=== PATIENT | male | born 1950 | race Caucasian/White ===

== ENCOUNTER 2019-09-12 19:10 | Inpatient (IN) ==
[2019-09-12] MEDS ORDERED: *HR* Metoprolol 5 MG/5 ML VIAL IVP ONE (19:34)
[2019-09-12] MEDS: DilTIAZem 50 MG/50 ML IV.SOLN IVC SCH (20:40)
[2019-09-12 21:23] LABS: Basophils # 0.1 K/mcL (0.0-0.2); Basophils % 0.7 %; Eosinophils # 0.1 K/mcL (0.0-0.6); Eosinophils % 1.1 %; Hematocrit 48.9 % (37.5-50.1); Hemoglobin 16.4 g/dL (12.9-16.9); Immature Granulocytes % 0.3 % (0-4); Lymphocytes # 2.8 K/mcL (0.6-4.6); Lymphocytes % 23.6 %; Mean Corpuscular HGB Conc 33.5 g/dL (31.6-35.5); Mean Corpuscular Hemoglobin 29.4 pg (28.0-33.3); Mean Corpuscular Volume 87.8 fL (83.0-100.0); Mean Platelet Volume 10.3 fL (9.4-12.4); Monocytes # 1.3 K/mcL (0.0-1.3); Monocytes % 11.3 %; Neutrophils # 7.4 K/mcL (1.6-8.9); Platelet Count 317 K/mcL (140-400); Red Blood Count 5.57 M/mcL (4.19-5.50); Red Cell Distribution Width 13.2 % (11.5-14.5); White Blood Count 11.7 K/mcL (4.3-11.1)
[2019-09-12 21:39] LABS: Alanine Aminotransferase 7 Units/L (7-52); Albumin 4.1 g/dL (3.5-5.7); Albumin/Globulin Ratio 1.7 (1.1-2.2); Alkaline Phosphatase 64 Units/L (34-104); Aspartate Amino Transferase 10 Units/L (13-39); BUN/Creatinine Ratio 13 (6-26); Bilirubin,Total 0.8 mg/dL (0.3-1.0); Blood Urea Nitrogen 12 mg/dL (8-23); Carbon Dioxide 22 mEq/L (23-29); Chloride 108 mEq/L (98-107); Globulin 2.4 g/dL (2.4-3.5); Glucose 112 mg/dL (70-105); Osmolality,Calculated 291 (280-300); Potassium 3.4 mEq/L (3.5-5.1); Sodium 140 mEq/L (136-145); Total Protein 6.5 g/dL (6.4-8.9); Troponin I < 0.03 ng/mL (< 0.04); eGFR For African Americans > 60 (> 60); eGFR For Non-African Americans > 60 (> 60)
[2019-09-12 21:51] LABS: Thyroid Stimulating Hormone 1.633 mcIU/mL (0.340-5.600)
[2019-09-12 21:52] LABS: Triiodothyronine (T3) Free 3.74 pg/mL (2.50-3.90)
[2019-09-12] MEDS ORDERED: 0.9 % Sodium Chloride 1,000 ML IV ONE (21:57)
[2019-09-13] MEDS ORDERED: *HR* Promethazine 25 MG/ML VIAL IVP PRN (02:29)
[2019-09-13] MEDS ORDERED: Naloxone 0.4 MG/ML INJ IVP PRN (02:29)
[2019-09-13] MEDS ORDERED: Acetaminophen 325 MG TABLET PO PRN (02:29)
[2019-09-13] MEDS ORDERED: Perflutren Lipid Microsphere 1.3 ML in 0.9 % Sodium Chloride 8.7 ML IVP PRN (02:31)
[2019-09-13] MEDS: DilTIAZem 50 MG/50 ML IV.SOLN IVC SCH ×2 (03:19→07:42)
[2019-09-13 06:38] LABS: Basophils # 0.1 K/mcL (0.0-0.2); Basophils % 0.9 %; Eosinophils # 0.2 K/mcL (0.0-0.6); Eosinophils % 2.4 %; Hematocrit 48.1 % (37.5-50.1); Immature Granulocytes % 0.3 % (0-4); Lymphocytes # 2.3 K/mcL (0.6-4.6); Mean Corpuscular HGB Conc 33.3 g/dL (31.6-35.5); Mean Corpuscular Hemoglobin 29.4 pg (28.0-33.3); Mean Corpuscular Volume 88.3 fL (83.0-100.0); Mean Platelet Volume 10.4 fL (9.4-12.4); Monocytes % 10.7 %; Platelet Count 289 K/mcL (140-400); Red Blood Count 5.45 M/mcL (4.19-5.50); Red Cell Distribution Width 13.4 % (11.5-14.5); Segmented Neutrophils % 61.7 %; White Blood Count 9.7 K/mcL (4.3-11.1)
[2019-09-13 06:43] LABS: INR 1.5; Prothrombin Time 16.9 Seconds (9.4-12.1)
[2019-09-13 07:05] LABS: BUN/Creatinine Ratio 11 (6-26); Blood Urea Nitrogen 10 mg/dL (8-23); Calcium 8.5 mg/dL (8.6-10.3); Carbon Dioxide 23 mEq/L (23-29); Chloride 109 mEq/L (98-107); Chol/HDL Ratio 3.8 (0-4.9); Cholesterol 121 mg/dL (< 200); Glucose 107 mg/dL (70-105); HDL Cholesterol 32 mg/dL (40-59); LDL Cholesterol,Calculated 69 mg/dL (< 100); Osmolality,Calculated 290 (280-300); Phosphorous 3.3 mg/dL (2.7-4.5); Potassium 3.6 mEq/L (3.5-5.1); Sodium 140 mEq/L (136-145); Triglycerides 100 mg/dL (< 150); Troponin I < 0.03 ng/mL (< 0.04); eGFR For African Americans > 60 (> 60); eGFR For Non-African Americans > 60 (> 60)
[2019-09-13] MEDS: *HR* Rivaroxaban 10 MG TABLET PO SCH (07:42)
[2019-09-13] MEDS ORDERED: DilTIAZem CD (24hr) 240 MG CAP.ER.24H PO SCH (09:00)
[2019-09-13] MEDS ORDERED: Metoprolol XL (24 HR) Succ 25 MG TAB.ER.24H PO SCH (10:30)
[2019-09-13 11:00] LABS: Estimated Average Glucose 108 mg/dl
[2019-09-13] MEDS ORDERED: 0.9 % Sodium Chloride 1,000 ML ONE (14:22)
[2019-09-13] MEDS ORDERED: *HR* Midazolam HCl 2 MG/2 ML VIAL ONE ×2 (14:24→14:30)
[2019-09-13] MEDS ORDERED: *HR* FentaNYL (PF) 100 MCG/2 ML VIAL ONE (14:24)
[2019-09-14] MEDS ORDERED: Regadenoson 0.4 MG/5 ML SYRINGE IVP ONE (06:33)
[2019-09-14 07:25] VITALS: BP 105/67
[2019-09-14 07:52] LABS: Basophils # 0.1 K/mcL (0.0-0.2); Basophils % 0.9 %; Eosinophils # 0.3 K/mcL (0.0-0.6); Eosinophils % 3.5 %; Hematocrit 44.4 % (37.5-50.1); Hemoglobin 14.4 g/dL (12.9-16.9); Immature Granulocytes % 0.3 % (0-4); Lymphocytes % 23.5 %; Mean Corpuscular HGB Conc 32.4 g/dL (31.6-35.5); Mean Corpuscular Hemoglobin 29.1 pg (28.0-33.3); Mean Corpuscular Volume 89.7 fL (83.0-100.0); Mean Platelet Volume 10.3 fL (9.4-12.4); Monocytes # 0.9 K/mcL (0.0-1.3); Monocytes % 10.4 %; Neutrophils # 5.3 K/mcL (1.6-8.9); Platelet Count 275 K/mcL (140-400); Red Blood Count 4.95 M/mcL (4.19-5.50); Red Cell Distribution Width 13.7 % (11.5-14.5); Segmented Neutrophils % 61.4 %; White Blood Count 8.6 K/mcL (4.3-11.1)
[2019-09-14 08:05] LABS: BUN/Creatinine Ratio 15 (6-26); Blood Urea Nitrogen 15 mg/dL (8-23); Calcium 8.3 mg/dL (8.6-10.3); Carbon Dioxide 24 mEq/L (23-29); Chloride 108 mEq/L (98-107); Glucose 100 mg/dL (70-105); Osmolality,Calculated 285 (280-300); Potassium 4.3 mEq/L (3.5-5.1); Sodium 137 mEq/L (136-145); eGFR For African Americans > 60 (> 60); eGFR For Non-African Americans > 60 (> 60)
[2019-09-14] MEDS: *HR* Rivaroxaban 10 MG TABLET PO SCH (10:17)
[2019-09-14] MEDS ORDERED: DilTIAZem CD (24hr) 120 MG CAP.ER.24H PO SCH (11:15)
[2019-09-14] MEDS ORDERED: DilTIAZem CD (24hr) 240 MG CAP.ER.24H PO SCH (12:00)
== END 2019-09-14 12:45 | disposition home or self-care (01) | DRG 310 ==
LOC: EMEROOARM 19:10 → 2ANU 19:10 → SUATTDRO 09-13 01:20 → 2ANU 09-13 02:27
PROVIDERS: ADMIT Student in an Organized Health Care Education/Training Program; ATTEND Internal Medicine

== ENCOUNTER 2019-09-23 09:00 | Inpatient (IN) ==
[2019-09-23] MEDS: *HR* Rivaroxaban 10 MG TABLET PO SCH (16:58)
[2019-09-24] MEDS: *HR* Rivaroxaban 10 MG TABLET PO SCH (17:03)
[2019-09-25 12:04] VITALS: BP 136/78
== END 2019-09-25 13:36 | disposition home or self-care (01) | DRG 310 ==
LOC: 3BNU
PROVIDERS: ADMIT Internal Medicine Clinical Cardiac Electrophysiology; ATTEND Internal Medicine Clinical Cardiac Electrophysiology

== ENCOUNTER 2021-07-23 07:11 | Observation (INO) ==
[2021-07-23 08:00] LABS: Basophils # 0.1 K/mcL (0.0-0.2); Eosinophils # 0.3 K/mcL (0.0-0.6); Eosinophils % 3.3 %; Hematocrit 47.9 % (37.5-50.1); Hemoglobin 15.9 g/dL (12.9-16.9); Immature Granulocytes % 0.3 % (0-4); Lymphocytes # 2.1 K/mcL (0.6-4.6); Lymphocytes % 23.3 %; Mean Corpuscular HGB Conc 33.2 g/dL (31.6-35.5); Mean Corpuscular Hemoglobin 29.4 pg (28.0-33.3); Mean Corpuscular Volume 88.5 fL (83.0-100.0); Mean Platelet Volume 11.2 fL (9.4-12.4); Monocytes # 0.8 K/mcL (0.0-1.3); Monocytes % 8.8 %; Neutrophils # 5.7 K/mcL (1.6-8.9); Platelet Count 292 K/mcL (140-400); Red Blood Count 5.41 M/mcL (4.19-5.50); Red Cell Distribution Width 13.2 % (11.5-14.5); Segmented Neutrophils % 63.3 %
[2021-07-23 08:05] LABS: Alanine Aminotransferase 20 Units/L (7-52); Albumin 4.1 g/dL (3.5-5.7); Albumin/Globulin Ratio 1.5 (1.1-2.2); Alkaline Phosphatase 68 Units/L (34-104); Aspartate Amino Transferase 17 Units/L (13-39); BUN/Creatinine Ratio 12 (6-26); Bilirubin,Total 0.9 mg/dL (0.3-1.0); Blood Urea Nitrogen 11 mg/dL (8-23); Calcium 9.1 mg/dL (8.6-10.3); Carbon Dioxide 23 mEq/L (23-29); Chloride 110 mEq/L (98-107); Globulin 2.7 g/dL (2.4-3.5); Glucose 134 mg/dL (70-105); Magnesium 2.1 mg/dL (1.6-2.6); Osmolality,Calculated 299 (280-300); Potassium 3.9 mEq/L (3.5-5.1); Sodium 144 mEq/L (136-145); Total Protein 6.8 g/dL (6.4-8.9); Troponin I < 0.03 ng/mL (< 0.04); eGFR For African Americans > 60 (> 60); eGFR For Non-African Americans > 60 (> 60)
[2021-07-23] MEDS: DilTIAZem 50 MG/50 ML IV.SOLN IVC SCH (08:10)
[2021-07-23] MEDS ORDERED: Acetaminophen 325 MG TABLET PO PRN (08:45)
[2021-07-23] MEDS ORDERED: Melatonin 3 MG TABLET PO PRN (08:45)
[2021-07-23] MEDS ORDERED: Ondansetron 4 MG/2 ML VIAL IVP PRN (08:45)
[2021-07-23] MEDS ORDERED: Naloxone 0.4 MG/ML INJ IVP PRN (08:45)
[2021-07-23] MEDS ORDERED: Perflutren Lipid Microsphere 1.3 ML in 0.9 % Sodium Chloride 8.7 ML IVP PRN (08:51)
[2021-07-23] MEDS ORDERED: *HR* Rivaroxaban 10 MG TABLET PO SCH (17:00)
[2021-07-24] MEDS: DilTIAZem 50 MG/50 ML IV.SOLN IVC SCH (03:46)
[2021-07-24 06:40] LABS: Basophils # 0.1 K/mcL (0.0-0.2); Basophils % 1.1 %; Eosinophils # 0.3 K/mcL (0.0-0.6); Eosinophils % 3.5 %; Hematocrit 44.2 % (37.5-50.1); Hemoglobin 14.6 g/dL (12.9-16.9); Immature Granulocytes % 0.4 % (0-4); Lymphocytes # 2.2 K/mcL (0.6-4.6); Lymphocytes % 23.8 %; Mean Corpuscular Hemoglobin 29.7 pg (28.0-33.3); Mean Platelet Volume 10.9 fL (9.4-12.4); Monocytes # 0.8 K/mcL (0.0-1.3); Monocytes % 8.3 %; Neutrophils # 5.9 K/mcL (1.6-8.9); Platelet Count 248 K/mcL (140-400); Red Blood Count 4.91 M/mcL (4.19-5.50); Red Cell Distribution Width 13.3 % (11.5-14.5); Segmented Neutrophils % 62.9 %; White Blood Count 9.3 K/mcL (4.3-11.1)
[2021-07-24 06:51] VITALS: BP 115/61; PULSE 47; TEMP 97.6; O2SAT 94
[2021-07-24 07:00] LABS: BUN/Creatinine Ratio 13 (6-26); Blood Urea Nitrogen 12 mg/dL (8-23); Calcium 8.8 mg/dL (8.6-10.3); Carbon Dioxide 24 mEq/L (23-29); Chloride 108 mEq/L (98-107); Cholesterol 115 mg/dL (< 200); Glucose 92 mg/dL (70-105); HDL Cholesterol 29 mg/dL (40-59); LDL Cholesterol,Calculated 61 mg/dL (< 100); Magnesium 2.1 mg/dL (1.6-2.6); Osmolality,Calculated 291 (280-300); Potassium 4.1 mEq/L (3.5-5.1); Sodium 141 mEq/L (136-145); Triglycerides 127 mg/dL (< 150); eGFR For African Americans > 60 (> 60); eGFR For Non-African Americans > 60 (> 60)
== END 2021-07-24 10:54 | disposition home or self-care (01) ==
LOC: EMEROOARM 07:11 → 3BNU 07:11
PROVIDERS: ADMIT Hospitalist; ATTEND Hospitalist

== ENCOUNTER 2021-09-29 23:19 | Inpatient (IN) ==
[2021-09-29] MEDS ORDERED: niCARdipine 0 MG/0 ML MLS IVC ONE (23:47)
[2021-09-30 00:07] LABS: Basophils # 0.1 K/mcL (0.0-0.2); Eosinophils # 0.4 K/mcL (0.0-0.6); Eosinophils % 3.6 %; Hematocrit 47.4 % (37.5-50.1); Hemoglobin 15.9 g/dL (12.9-16.9); Immature Granulocytes % 0.4 % (0-4); Lymphocytes # 2.8 K/mcL (0.6-4.6); Lymphocytes % 26.3 %; Mean Corpuscular HGB Conc 33.5 g/dL (31.6-35.5); Mean Corpuscular Hemoglobin 29.8 pg (28.0-33.3); Mean Corpuscular Volume 88.8 fL (83.0-100.0); Mean Platelet Volume 11.1 fL (9.4-12.4); Monocytes % 9.7 %; Neutrophils # 6.3 K/mcL (1.6-8.9); Platelet Count 303 K/mcL (140-400); Red Blood Count 5.34 M/mcL (4.19-5.50); Red Cell Distribution Width 13.1 % (11.5-14.5); White Blood Count 10.7 K/mcL (4.3-11.1)
[2021-09-30 00:16] LABS: INR 1.6; Prothrombin Time 18.2 Seconds (9.4-12.1)
[2021-09-30 00:18] LABS: Alanine Aminotransferase 16 Units/L (7-52); Albumin 4.2 g/dL (3.5-5.7); Albumin/Globulin Ratio 1.4 (1.1-2.2); Alkaline Phosphatase 67 Units/L (34-104); Aspartate Amino Transferase 19 Units/L (13-39); BUN/Creatinine Ratio 9 (6-26); Bilirubin,Direct 0.1 mg/dL (0.0-0.2); Bilirubin,Indirect 0.5 mg/dL (0.0-1.0); Bilirubin,Total 0.6 mg/dL (0.3-1.0); Blood Urea Nitrogen 9 mg/dL (8-23); Calcium 8.7 mg/dL (8.6-10.3); Carbon Dioxide 25 mEq/L (23-29); Chloride 108 mEq/L (98-107); Globulin 2.9 g/dL (2.4-3.5); Glucose 104 mg/dL (70-105); Magnesium 2.1 mg/dL (1.6-2.6); Osmolality,Calculated 289 (280-300); Potassium 3.8 mEq/L (3.5-5.1); Sodium 140 mEq/L (136-145); Total Protein 7.1 g/dL (6.4-8.9); Troponin I < 0.03 ng/mL (< 0.04)
[2021-09-30 00:19] LABS: Activated Partial Thrombo Time 39.4 Seconds (26.0-36.0)
[2021-09-30 00:32] LABS: Thyroid Stimulating Hormone 2.398 mcIU/mL (0.340-5.600)
[2021-09-30 00:38] LABS: Influenza A PCR Negative (Negative); Influenza B PCR Negative (Negative); Resp. Syncytial Virus PCR Negative (Negative)
[2021-09-30 00:39] LABS: SARS-CoV-2 by PCR (In House) Negative (Negative)
[2021-09-30] MEDS ORDERED: Naloxone 0.4 MG/ML INJ IVP PRN (01:00)
[2021-09-30] MEDS ORDERED: Melatonin 3 MG TABLET PO PRN (01:00)
[2021-09-30] MEDS ORDERED: *HR* Metoprolol 5 MG/5 ML VIAL IVP ONE (01:58)
[2021-09-30] MEDS ORDERED: Amiodarone Premix 150 MG/100 ML BAG IVPB ONE (02:19)
[2021-09-30] MEDS ORDERED: Amiodarone Premix 360 MG/200 ML BAG IVC ONE (03:00)
[2021-09-30 04:04] LABS: Hematocrit 44.5 % (37.5-50.1); Hemoglobin 14.6 g/dL (12.9-16.9); Mean Corpuscular HGB Conc 32.8 g/dL (31.6-35.5); Mean Corpuscular Hemoglobin 29.5 pg (28.0-33.3); Mean Corpuscular Volume 89.9 fL (83.0-100.0); Mean Platelet Volume 11.3 fL (9.4-12.4); Platelet Count 283 K/mcL (140-400); Red Blood Count 4.95 M/mcL (4.19-5.50); Red Cell Distribution Width 13.1 % (11.5-14.5); White Blood Count 11.6 K/mcL (4.3-11.1)
[2021-09-30 04:20] LABS: Calcium 8.3 mg/dL (8.6-10.3); Magnesium 2.1 mg/dL (1.6-2.6); Phosphorous 3.4 mg/dL (2.7-4.5); Potassium 3.7 mEq/L (3.5-5.1)
[2021-09-30] MEDS ORDERED: *HR* Metoprolol 5 MG/5 ML VIAL IVP PRN (04:49)
[2021-09-30] MEDS ORDERED: Magnesium Sulfate 1 GM/102 ML PIGGYBACK IVPB ONE (05:42)
[2021-09-30] MEDS ORDERED: Amiodarone Premix 360 MG/200 ML BAG IVC SCH (09:00)
[2021-09-30] MEDS ORDERED: *HR* Rivaroxaban 10 MG TABLET PO SCH (09:00)
[2021-09-30] MEDS ORDERED: *HR* Heparin 5,000 UNIT/ML VIAL IVP PRN ×2 (15:39)
[2021-09-30] MEDS ORDERED: Heparin 25,000UNIT/250ML 1/2NS 25,000 UNIT/250 ML IV.SOLN IVC SCH (15:45)
[2021-09-30 16:05] LABS: Hematocrit 43.1 % (37.5-50.1); Hemoglobin 14.4 g/dL (12.9-16.9); Mean Corpuscular HGB Conc 33.4 g/dL (31.6-35.5); Mean Corpuscular Volume 89.8 fL (83.0-100.0); Mean Platelet Volume 10.8 fL (9.4-12.4); Platelet Count 272 K/mcL (140-400); Red Cell Distribution Width 13.2 % (11.5-14.5); White Blood Count 8.8 K/mcL (4.3-11.1)
[2021-09-30 16:12] LABS: Heparin anti-factor XA UFH 0.65 IU/mL (0.30-0.70)
[2021-09-30 16:13] LABS: INR 1.4; Prothrombin Time 15.6 Seconds (9.4-12.1)
[2021-09-30] MEDS: Heparin 25,000UNIT/250ML 1/2NS 25,000 UNIT/250 ML IV.SOLN IVC SCH (18:13)
[2021-10-01 03:42] LABS: BUN/Creatinine Ratio 12 (6-26); Blood Urea Nitrogen 11 mg/dL (8-23); Calcium 8.3 mg/dL (8.6-10.3); Carbon Dioxide 25 mEq/L (23-29); Chloride 108 mEq/L (98-107); Glucose 89 mg/dL (70-105); Magnesium 2.2 mg/dL (1.6-2.6); Osmolality,Calculated 287 (280-300); Sodium 139 mEq/L (136-145)
[2021-10-01 03:57] LABS: Basophils # 0.1 K/mcL (0.0-0.2); Basophils % 1.1 %; Eosinophils # 0.4 K/mcL (0.0-0.6); Eosinophils % 4.3 %; Hematocrit 43.9 % (37.5-50.1); Hemoglobin 14.4 g/dL (12.9-16.9); Immature Granulocytes % 0.4 % (0-4); Lymphocytes # 2.4 K/mcL (0.6-4.6); Lymphocytes % 28.3 %; Mean Corpuscular HGB Conc 32.8 g/dL (31.6-35.5); Mean Corpuscular Hemoglobin 29.7 pg (28.0-33.3); Mean Corpuscular Volume 90.5 fL (83.0-100.0); Mean Platelet Volume 12.3 fL (9.4-12.4); Monocytes # 0.7 K/mcL (0.0-1.3); Monocytes % 8.7 %; Neutrophils # 4.8 K/mcL (1.6-8.9); Platelet Count 246 K/mcL (140-400); Red Blood Count 4.85 M/mcL (4.19-5.50); Red Cell Distribution Width 13.2 % (11.5-14.5); Segmented Neutrophils % 57.2 %; White Blood Count 8.4 K/mcL (4.3-11.1)
[2021-10-01] MEDS: Heparin 25,000UNIT/250ML 1/2NS 25,000 UNIT/250 ML IV.SOLN IVC SCH (10:35)
[2021-10-01] MEDS ORDERED: Nitroglycerin 1,000 MCG/5 ML VIAL IV ONE (13:51)
[2021-10-01] MEDS ORDERED: Heparin 1,000 UNITS/500 mL 500 ML ONE (13:51)
[2021-10-01] MEDS ORDERED: *HR* Heparin 10,000 UNIT/10 ML VIAL ONE ×2 (13:51→14:32)
[2021-10-01] MEDS ORDERED: Iopamidol - 370 200 ML INFUS..BTL ONE (13:51)
[2021-10-01] MEDS ORDERED: 0.9 % Sodium Chloride 1,000 ML ONE ×2 (13:51→13:55)
[2021-10-01] MEDS ORDERED: *HR* Midazolam HCl 2 MG/2 ML VIAL ONE (14:10)
[2021-10-01] MEDS ORDERED: *HR* FentaNYL (PF) 100 MCG/2 ML VIAL ONE (14:10)
[2021-10-01] MEDS ORDERED: *HR* Rivaroxaban 10 MG TABLET PO SCH (17:00)
[2021-10-02 01:27] LABS: Hematocrit 44.6 % (37.5-50.1)
[2021-10-02 01:46] LABS: Calcium 8.5 mg/dL (8.6-10.3); Magnesium 2.1 mg/dL (1.6-2.6); Potassium 3.9 mEq/L (3.5-5.1)
[2021-10-02] MEDS ORDERED: Aspirin Enteric Coated 81 MG Tablet PO SCH (09:00)
[2021-10-02 09:29] VITALS: BP 137/70; PULSE 74; TEMP 97.2; O2SAT 99
[2021-10-03] MEDS ORDERED: Metoprolol XL (24 HR) Succ 25 MG TAB.ER.24H PO SCH (18:00)
== END 2021-10-02 13:00 | disposition home or self-care (01) | DRG 247 ==
LOC: 2NENU 23:19 → EMEROOARM 23:19 → SUATTDRO 09-30 01:00 → 2NENU 09-30 02:00 → SUATTDRO 09-30 14:10
PROVIDERS: ADMIT Internal Medicine; ATTEND Internal Medicine

== ENCOUNTER 2021-10-20 23:07 | Observation (INO) ==
[2021-10-20] MEDS ORDERED: *HR* Metoprolol 5 MG/5 ML VIAL IVP ONE (23:17)
[2021-10-20] MEDS ORDERED: Aspirin 81 MG TAB.CHEW PO ONE (23:17)
[2021-10-20 23:40] LABS: Basophils # 0.1 K/mcL (0.0-0.2); Eosinophils # 0.3 K/mcL (0.0-0.6); Eosinophils % 2.7 %; Hematocrit 47.1 % (37.5-50.1); Hemoglobin 15.8 g/dL (12.9-16.9); Immature Granulocytes % 0.3 % (0-4); Lymphocytes # 2.2 K/mcL (0.6-4.6); Lymphocytes % 20.4 %; Mean Corpuscular HGB Conc 33.5 g/dL (31.6-35.5); Mean Corpuscular Hemoglobin 29.3 pg (28.0-33.3); Mean Corpuscular Volume 87.4 fL (83.0-100.0); Mean Platelet Volume 10.2 fL (9.4-12.4); Monocytes # 1.1 K/mcL (0.0-1.3); Neutrophils # 7.1 K/mcL (1.6-8.9); Platelet Count 326 K/mcL (140-400); Red Blood Count 5.39 M/mcL (4.19-5.50); Red Cell Distribution Width 13.1 % (11.5-14.5); Segmented Neutrophils % 65.6 %; White Blood Count 10.9 K/mcL (4.3-11.1)
[2021-10-20 23:47] LABS: INR 1.6; Prothrombin Time 17.6 Seconds (9.4-12.1)
[2021-10-20 23:49] LABS: Activated Partial Thrombo Time 43.5 Seconds (26.0-36.0)
[2021-10-20] MEDS ORDERED: 0.9 % Sodium Chloride 500 ML IV ONE (23:53)
[2021-10-20] MEDS ORDERED: 0.9 % Sodium Chloride 1,000 ML IV ONE (23:59)
[2021-10-21 00:02] LABS: BUN/Creatinine Ratio 10 (6-26); Blood Urea Nitrogen 10 mg/dL (8-23); Calcium 9.3 mg/dL (8.6-10.3); Carbon Dioxide 24 mEq/L (23-29); Chloride 106 mEq/L (98-107); Glucose 94 mg/dL (70-105); Magnesium 2.1 mg/dL (1.6-2.6); Osmolality,Calculated 287 (280-300); Potassium 3.8 mEq/L (3.5-5.1); Sodium 139 mEq/L (136-145)
[2021-10-21 00:03] LABS: Troponin I < 0.03 ng/mL (< 0.04)
[2021-10-21] MEDS ORDERED: 0.9 % Sodium Chloride 1,000 ML IV ONE (01:23)
[2021-10-21] MEDS ORDERED: Amiodarone Premix 150 MG/100 ML BAG IVPB ONE (02:15)
[2021-10-21] MEDS ORDERED: Amiodarone 450 MG in 0.9 % Sodium Chloride Excel Bg 241 ML IVC ONE (02:15)
[2021-10-21] MEDS ORDERED: WATER IVC ONE (02:45)
[2021-10-21] MEDS ORDERED: D5 IVC ONE (02:45)
[2021-10-21] MEDS ORDERED: AMIODARONE IVC ONE (02:45)
[2021-10-21] MEDS ORDERED: Naloxone 0.4 MG/ML INJ IVP PRN (02:59)
[2021-10-21] MEDS ORDERED: Ondansetron 4 MG/2 ML VIAL IVP PRN (02:59)
[2021-10-21] MEDS ORDERED: Acetaminophen 325 MG TABLET PO PRN (02:59)
[2021-10-21 05:57] LABS: Basophils # 0.1 K/mcL (0.0-0.2); Basophils % 1.1 %; Eosinophils # 0.3 K/mcL (0.0-0.6); Eosinophils % 2.8 %; Hematocrit 41.9 % (37.5-50.1); Immature Granulocytes % 0.3 % (0-4); Lymphocytes % 22.3 %; Mean Corpuscular HGB Conc 32.7 g/dL (31.6-35.5); Mean Corpuscular Hemoglobin 28.9 pg (28.0-33.3); Mean Corpuscular Volume 88.4 fL (83.0-100.0); Mean Platelet Volume 10.7 fL (9.4-12.4); Monocytes # 0.9 K/mcL (0.0-1.3); Monocytes % 9.8 %; Neutrophils # 5.8 K/mcL (1.6-8.9); Platelet Count 274 K/mcL (140-400); Red Blood Count 4.74 M/mcL (4.19-5.50); Red Cell Distribution Width 13.2 % (11.5-14.5); Segmented Neutrophils % 63.7 %; White Blood Count 9.1 K/mcL (4.3-11.1)
[2021-10-21 06:06] LABS: Hemoglobin 13.7 g/dL (12.9-16.9)
[2021-10-21 06:29] LABS: Albumin 3.4 g/dL (3.5-5.7); Albumin/Globulin Ratio 1.4 (1.1-2.2); Bilirubin,Direct 0.1 mg/dL (0.0-0.2); Bilirubin,Indirect 0.7 mg/dL (0.0-1.0); Bilirubin,Total 0.8 mg/dL (0.3-1.0); Calcium 8.3 mg/dL (8.6-10.3); Globulin 2.4 g/dL (2.4-3.5); Magnesium 2.1 mg/dL (1.6-2.6); Phosphorous 4.1 mg/dL (2.7-4.5); Potassium 4.2 mEq/L (3.5-5.1); Total Protein 5.8 g/dL (6.4-8.9); Troponin I 0.06 ng/mL (< 0.04)
[2021-10-21] MEDS ORDERED: Ringers Solution, Lactated 1,000 ML IVC ONE (07:36)
[2021-10-21 10:54] LABS: Bilirubin,Urine Negative (Negative); Blood,Urine Negative (Negative); Clarity,Urine Clear (Clear); Color,Urine Light-Yellow (Yellow); Glucose,Urine (UA) Normal (Normal); Ketones,Urine Negative (Negative); Leukocyte Esterase,Urine Negative (Negative); Nitrite,Urine Negative (Negative); PH,Urine 6.5 pH Units (5.0-8.0); Protein,Urine Negative (Neg-Trace); Specific Gravity,Urine 1.017 (1.010-1.025); Urobilinogen,Urine Normal (Normal)
[2021-10-21] MEDS ORDERED: *HR* Heparin 5,000 UNIT/ML VIAL IVP ONE (13:44)
[2021-10-21] MEDS ORDERED: *HR* Heparin 5,000 UNIT/ML VIAL IVP PRN ×2 (13:44)
[2021-10-21] MEDS ORDERED: Heparin 25,000UNIT/250ML 1/2NS 25,000 UNIT/250 ML IV.SOLN IVC SCH (13:45)
[2021-10-21 14:55] LABS: Hemoglobin 14.1 g/dL (12.9-16.9); Mean Corpuscular HGB Conc 32.8 g/dL (31.6-35.5); Mean Corpuscular Hemoglobin 29.4 pg (28.0-33.3); Mean Corpuscular Volume 89.6 fL (83.0-100.0); Platelet Count 260 K/mcL (140-400); Red Cell Distribution Width 13.2 % (11.5-14.5); White Blood Count 7.3 K/mcL (4.3-11.1)
[2021-10-21] MEDS: Heparin 25,000UNIT/250ML 1/2NS 25,000 UNIT/250 ML IV.SOLN IVC SCH (15:03)
[2021-10-21] MEDS: *HR* Amiodarone 200 MG TABLET PO SCH (15:08)
[2021-10-21 15:14] LABS: Heparin anti-factor XA UFH 0.16 IU/mL (0.30-0.70); INR 1.2; Prothrombin Time 13.3 Seconds (9.4-12.1)
[2021-10-21] MEDS ORDERED: *HR* Rivaroxaban 10 MG TABLET PO SCH (17:00)
[2021-10-21] MEDS ORDERED: Metoprolol XL (24 HR) Succ 25 MG TAB.ER.24H PO SCH (18:00)
[2021-10-22 04:07] LABS: Basophils # 0.1 K/mcL (0.0-0.2); Eosinophils # 0.4 K/mcL (0.0-0.6); Eosinophils % 5.1 %; Hematocrit 41.1 % (37.5-50.1); Hemoglobin 13.4 g/dL (12.9-16.9); Immature Granulocytes % 0.4 % (0-4); Lymphocytes % 23.5 %; Mean Corpuscular HGB Conc 32.6 g/dL (31.6-35.5); Mean Corpuscular Hemoglobin 29.5 pg (28.0-33.3); Mean Corpuscular Volume 90.3 fL (83.0-100.0); Mean Platelet Volume 11.2 fL (9.4-12.4); Monocytes # 0.8 K/mcL (0.0-1.3); Monocytes % 9.4 %; Neutrophils # 5.1 K/mcL (1.6-8.9); Platelet Count 238 K/mcL (140-400); Red Blood Count 4.55 M/mcL (4.19-5.50); Red Cell Distribution Width 13.2 % (11.5-14.5); Segmented Neutrophils % 60.6 %; White Blood Count 8.4 K/mcL (4.3-11.1)
[2021-10-22 04:24] LABS: BUN/Creatinine Ratio 12 (6-26); Blood Urea Nitrogen 9 mg/dL (8-23); Calcium 8.4 mg/dL (8.6-10.3); Carbon Dioxide 25 mEq/L (23-29); Chloride 111 mEq/L (98-107); Glucose 89 mg/dL (70-105); Osmolality,Calculated 292 (280-300); Potassium 3.8 mEq/L (3.5-5.1); Sodium 142 mEq/L (136-145)
[2021-10-22] MEDS: *HR* Amiodarone 200 MG TABLET PO SCH (08:06)
[2021-10-22] MEDS: Heparin 25,000UNIT/250ML 1/2NS 25,000 UNIT/250 ML IV.SOLN IVC SCH (08:07)
[2021-10-22 11:09] VITALS: BP 128/81; PULSE 60; TEMP 97.9; O2SAT 98
== END 2021-10-22 13:50 | disposition home or self-care (01) ==
LOC: 2NNU 23:07 → EMEROOARM 23:07 → SUATTDRO 10-21 02:43 → 2NNU 10-21 03:30 → 3NENU 10-21 18:54
PROVIDERS: ADMIT Student in an Organized Health Care Education/Training Program; ATTEND Pharmacist